=== PATIENT | male | born 1995 | race African-American/Black ===

== ENCOUNTER 2018-10-12 12:05 | Emergency (ER) | payer SELFPAY ==
[2018-10-12] MEDS ORDERED: IPRATROPIUM/ALBUTEROL 0.5-2.5 MG/3 ML AMPUL NEB ONE (13:05)
[2018-10-12] MEDS ORDERED: PREDNISONE 20 MG TABLET PO ONE (13:05)
[2018-10-12] MEDS ORDERED: ALBUTEROL SULFATE HFA (90 MCG/PUFF) 8 GM MDI (1 MDI/ER DISP) IH ONE (13:13)
--- NOTE | 2018-10-12 13:13 | ER Document Report ---
ED Respiratory Problem - General Chief Complaint: Cold Symptoms Stated Complaint: DIFFICULTY BREATHING Time Seen by Provider: 10/12/18 13:00 Primary Care Provider: EMERITA [facility] [Provider Group] - Follow up as needed [facility] [Provider Group] - Follow up as needed Notes: Patient is a 23-year-old male history of asthma as a child presents to the emergency department for generalized cough, congestion and difficulty taking a deep breath for the last 3 days. States on day 1 he did have a bit of a sore throat but is denying any sore throat at this time. Patient states he has not used albuterol inhalers in the last 10 years. Patient's denying any nausea, vomiting, chest pain, abdominal pain. TRAVEL OUTSIDE OF THE [place] IN LAST 30 DAYS: No - Related Data Allergies/Adverse Reactions: No Known Allergies Allergy (Verified 10/12/18 12:06) Past Medical History - General Information source: Patient - Social History Smoking Status: Unknown if Ever Smoked Family History: Reviewed & Not Pertinent Patient has suicidal ideation: No Patient has homicidal ideation: No Pulmonary Medical History: Reports: Hx Asthma Renal/ Medical History: Denies: Hx Peritoneal Dialysis Review of Systems - Review of Systems Constitutional: denies: Fever EENT: No symptoms reported Cardiovascular: See HPI Respiratory: See HPI Gastrointestinal: No symptoms reported Genitourinary: No symptoms reported Male Genitourinary: No symptoms reported Skin: No symptoms reported Hematologic/Lymphatic: No symptoms reported Neurological/Psychological: No symptoms reported Physical Exam - Vital signs Vitals: Temp Pulse Resp BP Pulse Ox 98.3 F 54 L 20 123/60 96 10/12/18 12:11 10/12/18 12:11 10/12/18 12:11 10/12/18 12:11 10/12/18 12:11 - Notes Notes: GENERAL: Alert, interacts well. No acute distress. HEAD: Normocephalic, atraumatic. EYES: Pupils equal, round, and reactive to light. Extraocular movements intact. ENT: Oral mucosa moist, tongue midline. Nares patent, TM's intact, nonerythematous, nonbulging bilaterally pharynx within normal limits no palatal petechiae noted NECK: Full range of motion. Supple. Trachea midline. LUNGS: Inspiratory wheezes to auscultation bilaterally, no discernible rales, or rhonchi. No respiratory distress, patient speaking in full sentences. HEART: Regular rate and rhythm. No murmur ABDOMEN: Soft, non-tender. Non-distended. Bowel sounds present in all 4 quadrants. EXTREMITIES: Moves all 4 extremities spontaneously. No edema, normal radial and dorsalis pedis pulses bilaterally. No cyanosis. BACK: no cervical, thoracic, lumbar midline tenderness. No saddle anesthesia, normal distal neurovascular exam. NEUROLOGICAL: Alert and oriented x3. Normal speech. cranial nerves II through XII grossly intact. PSYCH: Normal affect, normal mood. SKIN: Warm, dry, normal turgor. No rashes or lesions noted. Course - Re-evaluation Re-evalutation: After breathing treatments and steroids in the emergency department patient's lung sounds are clear and equal in all harding. Patient voices that he feels "so much better." Discussed continued use of albuterol for the next couple of days and steroids. Discussed close follow-up with primary care provider with close return precautions. At this time will discharge with return precautions and follow-up recommendations. Verbal discharge instructions given a the bedside and opportunity for questions given. Medication warnings reviewed. Patient is in agreement with this plan and has verbalized understanding of return precautions and the need for primary care follow-up in the next 24-72 hours. This medical record was dictated with voice recognizing software. There may be grammatical, syntax errors that are unintended. - Vital Signs Vital signs: Temp Pulse Resp BP Pulse Ox 98.5 F 56 L 16 126/68 H 98 10/12/18 13:52 10/12/18 13:52 10/12/18 13:52 10/12/18 13:52 10/12/18 13:52 Discharge - Discharge Clinical Impression: Bronchitis Asthma Qualifiers: Asthma severity: mild Asthma persistence: unspecified Asthma complication type: with acute exacerbation Qualified Code(s): J45.901 - Unspecified asthma with (acute) exacerbation Condition: Stable Disposition: HOME, SELF-CARE Instructions: Asthma ([facility]), Bronchitis With Bronchospasm (Wheezing) ([facility]), Upper Respiratory Illness ([facility]) Additional Instructions: As we discussed you have been seen and treated in the emergency department for a flareup of your asthma. Your cough and congestion is caused by an upper respiratory infection that is inevitably causing bronchitis. This is an inflammation of the lining of your lungs. Please make sure you are taking steroids as prescribed. Please also make sure you are using your albuterol inhaler every 4 hours or as needed for respiratory distress. Please follow-up with a primary care provider in the next 24 to 48 hours. Please return to the emergency room for any further respiratory distress or other concerns. Prescriptions: Albuterol Sulfate [Proair HFA Inhalation Aerosol 8.5 gm MDI] 2 puff IH Q4H PRN #1 mdi PRN Reason: Prednisone [Deltasone 20 mg Tablet] 3 tab PO DAILY 5 Days tablet Forms: Return to Work Referrals: [facility] [Provider Group] - Follow up as needed [facility] [Provider Group] - Follow up as needed
--- NOTE | 2018-10-12 13:13 | RADIOLOGY REPORT (SQ) ---
EXAM DESCRIPTION: CHEST 2 VIEWS COMPLETED DATE/TIME: 10/12/2018 1:01 pm REASON FOR STUDY: SOB COMPARISON: None. EXAM PARAMETERS: NUMBER OF VIEWS: two views TECHNIQUE: Digital Frontal and Lateral radiographic views of the chest acquired. RADIATION DOSE: NA LIMITATIONS: none FINDINGS: LUNGS AND PLEURA: No opacities, masses or pneumothorax. No pleural effusion. MEDIASTINUM AND HILAR STRUCTURES: No masses or contour abnormalities. HEART AND VASCULAR STRUCTURES: Heart normal size. No evidence for failure. BONES: No acute findings. HARDWARE: None in the chest. OTHER: No other significant finding. IMPRESSION: NO ACUTE RADIOGRAPHIC FINDING IN THE CHEST. TECHNICAL DOCUMENTATION: JOB ID: [id number] [employer]- All Rights Reserved Reading location - IP/workstation name: [email or web address]
[2018-10-12 14:03] VITALS: BP 126/68
== END 2018-10-12 13:52 | disposition home or self-care (01) ==
LOC: ER 12:05
DX: J45.901 Unspecified asthma with (acute) exacerbation (principal); R05 Cough
CPT/HCPCS: 94640; 99283; 71046; J7512; J3490; J7620

== ENCOUNTER 2019-04-06 11:07 | Emergency (ER) | payer SELFPAY ==
[2019-04-06 11:11] VITALS: BP 137/64
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
--- NOTE | 2019-04-06 11:56 | RADIOLOGY REPORT (SQ) ---
EXAM DESCRIPTION: HAND RIGHT 3 VIEWS COMPLETED DATE/TIME: 04/06/2019 11:40 am REASON FOR STUDY: 5th finger distal pain COMPARISON: None. EXAM PARAMETERS: NUMBER OF VIEWS: Three views. TECHNIQUE: AP, lateral and oblique radiographic images acquired of the right hand. LIMITATIONS: None. FINDINGS: MINERALIZATION: Normal. BONES: Avulsion fracture of the extensor process of the distal 5th phalanx. JOINTS: No effusions. SOFT TISSUES: No soft tissue swelling. No foreign body. OTHER: No other significant finding. IMPRESSION: Avulsion fracture distal 5th phalanx. TECHNICAL DOCUMENTATION: JOB ID: [id number] [employer]- All Rights Reserved Reading location - IP/workstation name: [email or web address]
== END 2019-04-06 12:31 | disposition home or self-care (01) ==
LOC: ER 11:07
DX: S62.636A Displaced fracture of distal phalanx of right little finger, initial encounter for closed fracture (principal); S01.501A Unspecified open wound of lip, initial encounter; Y04.0XXA Assault by unarmed brawl or fight, initial encounter; J45.909 Unspecified asthma, uncomplicated
CPT/HCPCS: 99283